=== PATIENT | female | born 1990 | race Caucasian/White ===

== ENCOUNTER 2020-05-30 17:24 | Inpatient (IN) | payer OTHER ==
[~2020-05-30] VITALS: Ht 167.6 cm; Wt 90.7 kg
[2020-06-01] MEDS ORDERED: CODE1TAB37 PO (13:19)
[2020-06-01] MEDS ORDERED: NAPR500T14 PO (13:20)
== END 2020-06-01 13:32 | disposition home or self-care (01) | DRG 817 ==
LOC: ER 17:24 → OB/GYN 19:49 → SEC-K 19:49 → OB/GYN 20:20
PROVIDERS: ADMIT Obstetrics & Gynecology; ATTEND Obstetrics & Gynecology
PROC: 0UB74ZZ Excision of Bilateral Fallopian Tubes, Percutaneous Endoscopic Approach (ICD-10-PCS; principal; 2020-05-30)
PROC: 10T24ZZ Resection of Products of Conception, Ectopic, Percutaneous Endoscopic Approach (ICD-10-PCS; 2020-05-30)
PROC: BU4CZZZ Ultrasonography of Uterus and Ovaries (ICD-10-PCS; 2020-05-30)
DX: O00.102 Left tubal pregnancy without intrauterine pregnancy (principal); K66.1 Hemoperitoneum; O08.1 Delayed or excessive hemorrhage following ectopic and molar pregnancy; Z30.2 Encounter for sterilization; Z20.828 Contact with and (suspected) exposure to other viral communicable diseases